=== PATIENT | male | born 1945 | race Caucasian/White ===

== ENCOUNTER 2019-10-01 14:16 | Observation (INO) | payer MEDICARE, OTHER ==
[~2019-10-01 14:16] MED LIST: ABIR250T PO; APAL60TA PO; ASPI-1181 PO; GLIM4TAB36 PO; LEVO50TA11 PO; LOSA100T58 PO; PRED5TAB44 PO
[2019-10-01 14:44] LABS: BASOPHILS % (AUTO) 0.4 % (0.0-5.0); HEMATOCRIT 33.3 % (42-54); LYMPHOCYTES % (AUTO) 25.4 % (21.0-51.0); MEAN CORPUSCULAR HEMOGLOBIN 29.6 pg (27.0-33.0); MEAN CORPUSCULAR HGB CONC 33.3 g/dL (32.0-36.0); MEAN CORPUSCULAR VOLUME 88.8 fL (79-99); MONOCYTES % (AUTO) 6.1 % (3.0-13.0); NEUTROPHILS % (AUTO) 65.6 % (40.0-77.0); PLATELET COUNT (AUTO) 216 K/uL (130-400); RED BLOOD CELL COUNT(AUTO) 3.75 MIL/uL (4.50-6.20); RED CELL DISTRIBUTION WIDTH 12.7 % (11.0-15.5); WHITE BLOOD COUNT (AUTO) 6.7 K/uL (4.8-10.8)
[2019-10-01 14:58] LABS: CREATININE 1.1 mg/dL (0.5-1.5); POTASSIUM 3.9 mmol/L (3.5-5.1)
[2019-10-01 15:03] LABS: ALBUMIN 3.5 g/dL (3.5-5.0); BILIRUBIN,TOTAL 0.3 mg/dL (0.2-1.0); TOTAL PROTEIN, SERUM 6.9 g/dL (6.0-8.3)
[2019-10-01 15:10] LABS: INR 0.95 (0.85-1.15); PARTIAL THROMBOPLASTIN TIME 26.6 SEC (26.3-35.5)
[2019-10-01] MEDS ORDERED: SODIUM CHLORIDE 0.9% 1000ML 1,000 ML IV ONE (15:14)
[2019-10-01] MEDS ORDERED: IOHEXOL-350 75 ML VIAL IV ONE (16:45)
[2019-10-01] MEDS ORDERED: 1/2 NORMAL SALINE 1,000 ML IV SCH (19:15)
[2019-10-01 20:48] LABS: APPEARANCE,URINE CLEAR (CLEAR); BILIRUBIN,URINE NEGATIVE (NEGATIVE); COLOR,URINE STRAW (YELLOW); GLUCOSE, URINE (UA) NEGATIVE (NEGATIVE); KETONES,URINE NEGATIVE (NEGATIVE); LEUKOCYTE ESTERASE ,URINE NEGATIVE (NEGATIVE); NITRATE,URINE NEGATIVE (NEGATIVE); OCCULT BLOOD,URINE NEGATIVE (NEGATIVE); PROTEIN,URINE NEGATIVE (NEGATIVE); UROBILINOGEN,URINE 0.2 mg/dL (0.2-1.0)
[2019-10-01] MEDS ORDERED: 1/2 NORMAL SALINE 1,000 ML IV ONE (21:19)
[2019-10-02 05:23] LABS: BASOPHILS % (AUTO) 0.6 % (0.0-5.0); HEMATOCRIT 33.1 % (42-54); LYMPHOCYTES % (AUTO) 23.3 % (21.0-51.0); MEAN CORPUSCULAR HEMOGLOBIN 29.5 pg (27.0-33.0); MEAN CORPUSCULAR HGB CONC 33.2 g/dL (32.0-36.0); MEAN CORPUSCULAR VOLUME 88.7 fL (79-99); MONOCYTES % (AUTO) 7.8 % (3.0-13.0); PLATELET COUNT (AUTO) 202 K/uL (130-400); RED BLOOD CELL COUNT(AUTO) 3.73 MIL/uL (4.50-6.20); RED CELL DISTRIBUTION WIDTH 12.7 % (11.0-15.5)
[2019-10-02 05:28] LABS: CREATININE 0.9 mg/dL (0.5-1.5); POTASSIUM 3.5 mmol/L (3.5-5.1)
== END 2019-10-02 15:01 | disposition home or self-care (01) ==
LOC: EDH 14:16 → EDHIP 17:40
PROVIDERS: ADMIT Internal Medicine; ATTEND Internal Medicine
DX: R55 Syncope and collapse (principal); E11.9 Type 2 diabetes mellitus without complications; E03.9 Hypothyroidism, unspecified; Z85.46 Personal history of malignant neoplasm of prostate; Z96.659 Presence of unspecified artificial knee joint
CPT/HCPCS: 36415 ×2; 70450; 71045; 71275; 72125; 73562; 80048; 80053; 81003; 82550; 84484; 85025 ×2; 85378; 85610; 85730; 93005; 93306; 99284; G0378 ×8; J7030; Q9967; 93970

== ENCOUNTER 2020-02-24 06:04 | Day surgery (SDC) | payer OTHER, MEDICARE ==
[2020-02-20 09:16] VITALS: BP 160/68
[2020-02-20 15:12] LABS: BASOPHILS % (AUTO) 0.8 % (0.0-5.0); EOSINOPHILS % (AUTO) 1.6 % (0.0-8.0); HEMATOCRIT 35.6 % (42-54); LYMPHOCYTES % (AUTO) 32.5 % (21.0-51.0); MEAN CORPUSCULAR HEMOGLOBIN 29.5 pg (27.0-33.0); MEAN CORPUSCULAR HGB CONC 32.9 g/dL (32.0-36.0); MEAN CORPUSCULAR VOLUME 89.7 fL (79-99); MONOCYTES % (AUTO) 5.8 % (3.0-13.0); PLATELET COUNT (AUTO) 248 K/uL (130-400); RED BLOOD CELL COUNT(AUTO) 3.97 MIL/uL (4.50-6.20); RED CELL DISTRIBUTION WIDTH 13.1 % (11.0-15.5); WHITE BLOOD COUNT (AUTO) 6.3 K/uL (4.8-10.8)
[2020-02-20 15:16] LABS: APPEARANCE,URINE Clear (CLEAR); BILIRUBIN,URINE Negative (NEGATIVE); COLOR,URINE Yellow (YELLOW); GLUCOSE, URINE (UA) TRACE mg/dL (NEGATIVE); KETONES,URINE Negative (NEGATIVE); LEUKOCYTE ESTERASE ,URINE Negative (NEGATIVE); NITRATE,URINE Negative (NEGATIVE); OCCULT BLOOD,URINE Negative (NEGATIVE); PROTEIN,URINE Negative (NEGATIVE)
[2020-02-20 15:23] LABS: CREATININE 1.1 mg/dL (0.5-1.5)
[2020-02-20 15:24] LABS: INR 0.94 (0.85-1.15); PARTIAL THROMBOPLASTIN TIME 26.3 SEC (26.3-35.5); PROTHROMBIN TIME 10.2 SEC (9.6-11.6)
[2020-02-20 15:43] LABS: BACTERIA,URINE None Seen /HPF (None Seen); RBC,URINE 0-1 /HPF (0-1); SQUAMOUS EPITHELIAL CELL,UR 0-2 /HPF (0-2); WBC,URINE 0-1 /HPF (0-1)
[2020-02-24] VITALS (13 sets, daily range): BP systolic 150–167; BP diastolic 57–83
[~2020-02-24] VITALS: Ht 186.7 cm; Wt 98.4 kg
[~2020-02-24 06:04] MED LIST changes: -ASPI-1181 PO; +ASPI-1443 PO; +SODIUM CHLORIDE 0.9% 500ML 500 ML IV SCH
[2020-02-24] MEDS ORDERED: SODIUM CHLORIDE 0.9% 1000ML 1,000 ML IV ONE (06:05)
[2020-02-24] MEDS ORDERED: LEVO25TA54 PO (07:14)
[2020-02-24] MEDS ORDERED: FENO160T16 PO (07:14)
[2020-02-24] MEDS ORDERED: ISOS30TA6 PO (07:14)
[2020-02-24] MEDS ORDERED: FAMO40TA7 PO (07:14)
--- NOTE | 2020-02-24 07:15 | NUR ---
ASSESSMENT PT HERE FOR PROCEDURE. AT BEDSIDE. NO CHEST PAIN/SOB AT THIS TIME.
[2020-02-24] MEDS ORDERED: NITROGLYCERIN 2 MG/VIAL VIAL IV ONE (07:22)
[2020-02-24] MEDS ORDERED: HEPARIN SODIUM 1000UNIT/ML 10ML VIAL ONE (07:22)
[2020-02-24] MEDS ORDERED: IOHEXOL 350 MG/ML 100ML INFUS..BTL IV ONE (07:22)
[2020-02-24] MEDS ORDERED: IOHEXOL-350 50ML VIAL IV ONE (07:22)
[2020-02-24] MEDS ORDERED: LIDOCAINE HCL 2% 20ML ONE (07:23)
--- NOTE | 2020-02-24 07:43 | NUR ---
PROCEDURE POT TAKEN TO PROCEDURE VIA BED BY [employer] OPERATOR STAFF ALICIA SWARTZ.
[2020-02-24] MEDS ORDERED: NICARDIPINE HCL 25 MG/10 ML ML IV ONE (07:55)
[2020-02-24] MEDS ORDERED: SODIUM CHLORIDE 0.9% 1000ML 1,000 ML IV SCH (09:11)
[2020-02-24] MEDS ORDERED: DEXTROSE 50%-WATER 50 ML DISP.SYRIN IV PRN (09:15)
[2020-02-24] MEDS ORDERED: GLUCAGON 1MG KIT 1 MG ML IM PRN (09:15)
--- NOTE | 2020-02-24 09:55 | NUR ---
PROCEDURE PT HERE FROM PROCEDURE. INSTRUCTED PT AND ON IMPORTANCE OF KEEPING RIGHT LEG STRAIGHT AND NOT TO LIFT HEAD UP OFF OF BED AND NOT TO LIFT OR MOVE THE RIGHT WRIST. BOTH VERBALIZED UNDERSTANDING. BOTH SITES ARE SOFT TO TOUCH. NO BLEEDING, OOZING NOTED TO SITES.
[2020-02-24] MEDS ORDERED: INSULIN HUMULIN R 100 UNIT/ML 3ML SQ SCH (11:30)
--- NOTE | 2020-02-24 13:49 | NUR ---
INSTRUCTIONS DISCHARGE INSTRUCTIONS GIVEN TO PT AND PTS ALONG WITH EDUCATION ON MONITORING SITES FOR BLEEDING. BOTH PT AND PTS VERBALIZED UNDERSTANDING.
--- NOTE | 2020-02-24 14:02 | NUR ---
REPORT REPORT GIVEN TO ALICIA HAMMOND. SITE TO RIGHT WRIST DRY AND INTACT. SOFT TO TOUCH. SITE TO RIGHT GROIN SOFT TO TOUCH. NO BLEEDING, OOZING NOTED TO SITES. AT BEDSIDE.
--- NOTE | 2020-02-24 15:00 | NUR ---
discharge pt taken out via w/c in no distress. no bleeding or hematoma to rt wrist or right groin. rt wrist no change to bruising noted. pt and spouse reported previous nurse had already given discharge instructions.
== END 2020-02-24 15:00 | disposition home or self-care (01) ==
LOC: DAH 06:04
PROVIDERS: ATTEND Internal Medicine Cardiovascular Disease
DX: I25.119 Atherosclerotic heart disease of native coronary artery with unspecified angina pectoris (principal); I25.82 Chronic total occlusion of coronary artery; I11.9 Hypertensive heart disease without heart failure; E78.5 Hyperlipidemia, unspecified; G90.01 Carotid sinus syncope; E10.59 Type 1 diabetes mellitus with other circulatory complications; Z79.84 Long term (current) use of oral hypoglycemic drugs; Z85.46 Personal history of malignant neoplasm of prostate; Z90.79 Acquired absence of other genital organ(s); Z98.890 Other specified postprocedural states; Z82.49 Family history of ischemic heart disease and other diseases of the circulatory system; Z79.899 Other long term (current) drug therapy; Z79.01 Long term (current) use of anticoagulants; Z72.89 Other problems related to lifestyle
CPT/HCPCS: 36415; 71045; 80048; 81001; 82948 ×2; 85025; 85610; 85730; 93005; 93458; A4215; A4216; A4221; A4222; A4223 ×3; A4606; A4663; C1760; C1769 ×3; C1894 ×3; J1644 ×2; J3490 ×3; J7030; Q9965; Q9967 ×2

== ENCOUNTER 2020-03-12 12:15 | Emergency (ER) | payer OTHER, MEDICARE ==
[2020-03-12] MEDS ORDERED: AZITHROMYCIN 250 MG TABLET PO ONE (14:17)
[2020-03-12] MEDS ORDERED: ACETAMINOPHEN EXTRA STRENGTH 500 MG TABLET ONE (14:17)
== END 2020-03-12 14:43 | disposition home or self-care (01) ==
LOC: EDH 12:15
DX: J12.89 Other viral pneumonia (principal); R03.0 Elevated blood-pressure reading, without diagnosis of hypertension; Z20.828 Contact with and (suspected) exposure to other viral communicable diseases; E11.9 Type 2 diabetes mellitus without complications
CPT/HCPCS: 36415; 71045; 80053; 82550; 82728; 83605; 84145; 84484; 85025; 85378; 85610; 85730; 86140; 87804 ×2; 87880; 93005 ×2; 99285; U0003

== ENCOUNTER → 2020-08-18 | Outpatient (CLI) | payer OTHER, MEDICARE ==
[~2020-08-18] MED LIST changes: -ASPI-1443 PO; +FAMO40TA7 PO; +FENO160T16 PO; +ISOS30TA6 PO; +LEVO25TA54 PO; -LEVO50TA11 PO; -SODIUM CHLORIDE 0.9% 500ML 500 ML IV SCH
--- NOTE | 2020-08-18 10:30 | NUR ---
MBSS COMPLETED. -S/S OF ASPIRATION. RECOMMEND MECHANICAL SOFT/CHOPPED, THIN LIQUID DIET; PILLS CRUSHED WITH APPLESAUCE. RECOMMENDATIONS SECONDARY TO UPPER ESOPHAGUS FINDINGS: 1. GI CONSULT; PLEASE CONSIDER UPPER GI SERIES. 2. CT SCAN OF ABDOMEN Addendum: 08/18/20 at 1542 by SANTOS WALDRON, [facility] Amended: Links added.
== END | disposition home or self-care (01) ==
LOC: RAH 10:40
PROVIDERS: ATTEND Internal Medicine
DX: J69.0 Pneumonitis due to inhalation of food and vomit (principal); R05 Cough
CPT/HCPCS: 74230; 92611

== ENCOUNTER → 2022-06-28 | Outpatient (CLI) | payer OTHER, MEDICARE ==
[~2022-06-28] MED LIST changes: -ISOS30TA6 PO; +ISOS30TA92 PO
== END | disposition home or self-care (01) ==
LOC: SHCH 13:16
PROVIDERS: ATTEND Internal Medicine Cardiovascular Disease
DX: I87.2 Venous insufficiency (chronic) (peripheral) (principal)
CPT/HCPCS: 93970